=== PATIENT | female | born 1980 | race Caucasian/White ===

== ENCOUNTER → 2020-04-28 | Outpatient (CLI) | payer BC | LOC: COL.RAD 06:48 | DX: K80.20 Calculus of gallbladder without cholecystitis without obstruction (principal); R16.0 Hepatomegaly, not elsewhere classified ==

== ENCOUNTER 2021-06-03 14:49 | Inpatient (IN) | payer OTHER, BC ==
[~2021-06-03] VITALS: Ht 172.7 cm; Wt 175.0 kg
[2021-06-03] MEDS ORDERED: ZYRTEC 10MG10 MG PO (15:27)
[2021-06-03] MEDS ORDERED: RT SPIRIVA18 MCG (15:30)
[2021-06-03] MEDS ORDERED: LOVENOX 6060 MG/0.6 SQ (15:31)
[2021-06-03] MEDS ORDERED: ASPIRIN E.C. 8181 MG PO (15:32)
[2021-06-03] MEDS ORDERED: PERCOCET 325 MG1 TA2 PO (15:32)
[2021-06-03] MEDS ORDERED: TYLENOL 325MG325 MG PO (15:33)
[2021-06-03] MEDS ORDERED: PRISTIQ 50 MG T50 MG PO (15:34)
[2021-06-03] MEDS ORDERED: DULERA1 AR1 IH (17:02)
[2021-06-03] MEDS ORDERED: EUTHYROX125 MCG PO (17:04)
[2021-06-03] MEDS ORDERED: ACTIGALL 300MG300 MG PO (17:05)
[2021-06-03] MEDS ORDERED: SINGULAIR 110 MG/TAB PO (17:06)
[2021-06-03 17:43] VITALS: BP 140/74; PULSE 88; TEMP 98.8
--- NOTE | 2021-06-03 20:30 | NUR ---
PIVOT TRANSFER TO BSC 2:1 ASSIST. PT VOIDED W/O DIFFICULTY. TRANSFERRED TO BARIACTRIC BED. RTLOWER LEG UP ON PILLOWS AND ICE BAG APPLIED. RUE ON PILLOWS. CALL LIGHT IN REACH.
--- NOTE | 2021-06-03 23:31 | NUR ---
SEE MAR FOR PERCOCET GIVEN FOR ARM AND LEG PAIN LEVEL 6/10CPAP ON AT THIS TIME.
[2021-06-04 03:27] VITALS: BP 97/44; PULSE 97; TEMP 100.9
[2021-06-04 05:12] VITALS: BP 146/84; PULSE 92; TEMP 98.6
--- NOTE | 2021-06-04 14:26 | NUR ---
XRAY IN ROOM WITH PT. PT HAS WORKED WITH THERAPY MOST OF DAY, PIVOT TRANSFERS ET PUSHES SELF IN WC.
[2021-06-04 14:48] LABS: BASO % 0.3 % (0.0-2.0); EOS # 0.3 K/mm3 (0.0-0.7); EOS % 2.9 % (0.0-4.0); GRAN # 6.3 K/mm3 (1.4-6.5); HEMOGLOBIN 10.4 g/dl (12.5-16.0); LYMPH # 1.6 K/mm3 (1.2-3.4); MEAN CELL VOLUME 86 fl (80.0-100.0); MEAN CORPUSCULAR HEMOGLOBIN 27 pg (27-31); MEAN CORPUSCULAR HGB CONC 31 g/dl (33.0-37.0); MEAN PLATELET VOLUME 9.2 fl (7.4-10.4); MONO # 0.6 K/mm3 (0.1-0.6); MONO % 7.3 % (1.7-9.3); PLATELET COUNT 327 K/mm3 (130-400); RED BLOOD COUNT 3.86 M/mm3 (4.10-5.30); REDCELL DISTRIBUTION WIDTH-CV 13.9 % (11.5-14.5)
[2021-06-04 14:53] LABS: HEMATOCRIT 33.3 % (37.0-47.0)
[2021-06-04 15:01] LABS: CALCIUM 8.8 mg/dL (8.4-10.2); CREATININE, serum 0.75 mg/dL (0.57-1.11); POTASSIUM 3.9 mmol/L (3.5-4.5)
--- NOTE | 2021-06-04 15:01 | NUR ---
SW met with the patient to complete intake, as the patient is new to [facility]. The patient lives in an apartment in [place] with her spouse, Lori Paul (ph#[phone]). She reports independence with ADLs and does not have any DME. The patient's PCP is Dr. Ester Toribio and she receives her medications from [facility]. The patient does not have a DPOA-HC, but she was interested in obtaining a form. BHAVANA provided. The patient states that she is to [place]. The patient states that she plans on staying at an extended stay hotel upon discharge, due to the stairs at her apartment not being regulated, with no railings. She states that her mother, who was an RN, will also be coming from [place] to help her upon discharge. SW to continue to follow.
--- NOTE | 2021-06-04 15:20 | NUR ---
REPORT GIVEN TO TC BAEZA.
[2021-06-04 16:17] LABS: COLLECTION METHOD CLEAN CATCH
[2021-06-04 16:19] VITALS: BP 129/72; PULSE 92; TEMP 98
[2021-06-04 16:28] LABS: PH 6 (5-8); SQUAMOUS EPITHELIAL 0-2 /hpf (0-10); URINE APPEARANCE Clear (CLEAR/HAZY); URINE BACTERIA None Seen /hpf (NONE SEEN); URINE BILIRUBIN Negative (NEGATIVE); URINE BLOOD 1+ (NEGATIVE); URINE COLOR Straw (YELLOW); URINE GLUCOSE Negative (NEGATIVE); URINE KETONE Negative (NEGATIVE); URINE LEUKOCYTE ESTERASE Negative (NEGATIVE); URINE NITRATE Negative (NEGATIVE); URINE PROTEIN(semi-quant) Negative (NEGATIVE); URINE RBC 0-2 /hpf (0-2); URINE UROBILINOGEN Negative (NEGATIVE)
[2021-06-05 05:46] VITALS: BP 127/64; PULSE 81; TEMP 98.6
--- NOTE | 2021-06-05 17:09 | NUR ---
PT RESTING IN BED @ THIS TIME, HAS BEEN UP TO BR WITH 1 ASSIST ET USES WC TO PIVOT TRANSFER TO TOILET. PT'S PARTNER IS @ BEDSIDE. PT WORKED WITH THERAPY THIS MORNING, HAS BEEN GIVEN PERCOCET FOR PAIN.
[2021-06-05 17:46] VITALS: BP 130/68; PULSE 90; TEMP 97.6
--- NOTE | 2021-06-06 03:21 | NUR ---
Patient care, medication administration and nursing documentation occurred during a Daylight Savings Time Change.
[2021-06-06 06:04] VITALS: BP 126/63; PULSE 89; TEMP 98.7
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
[2021-06-06 18:00] VITALS: BP 126/63; PULSE 79; TEMP 98.6
--- NOTE | 2021-06-06 19:10 | NUR ---
RECEIVED CHANGE OF SHIFT REPORT FROM DAY SHIFT RN.
--- NOTE | 2021-06-06 21:35 | NUR ---
PATIENT REPORTED HAVING PROBLEMS WITH SLEEPING AT NIGHT, REPORTS TAKES MELATONIN FOR SLEEP AT HOME. CALLED DR WYMAN REGARDING PATIENT'S REQUEST FOR MELATONIN, PROVIDER TO ENTER ORDER FOR REQUESTED MED.
[2021-06-07 05:18] VITALS: BP 120/62; PULSE 92; TEMP 98.2
--- NOTE | 2021-06-07 06:51 | NUR ---
CHANGE OF SHIFT REPORT GIVEN TO DAY SHIFT RNTC.
--- NOTE | 2021-06-07 14:27 | NUR ---
BHAVANA met with the patient to follow up after the weekend. The patient states that she believes it went well. She states these last few days have been a blur, otherwise she believes she is doing well. The team would like to set up a patient/family meeting. A patient/family meeting was set up for this Monday at 1000. The patient states that her should be able be able to be here and she plans on FaceTiming her mother for the meeting.
[2021-06-07 16:19] VITALS: BP 135/74; PULSE 88; TEMP 98.4
--- NOTE | 2021-06-07 19:00 | NUR ---
RECEIVED CHANGE OF SHIFT REPORT FROM DAY SHIFT RN.
[2021-06-08 05:02] VITALS: BP 133/77; PULSE 79; TEMP 97.8
--- NOTE | 2021-06-08 07:10 | NUR ---
CHANGE OF SHIFT REPORT GIVEN TO DAY SHIFT RNs, ZENA.
--- NOTE | 2021-06-08 07:17 | NUR ---
Shift report recevied from mine shifter RN
--- NOTE | 2021-06-08 13:12 | NUR ---
Admission QIM scores were reviewed by the team. Code of 3 chosen for toilet hygiene was determined by team discussion to be the most usual performance for this patient during the assessment period. Code of 88 chosen for toileting transfers was determined by team discussion to be the most usual performance for this patient during the assessment period. Code of 6 chosen for lying to sitting on side of bed was determined by team discussion to be the most usual performance for this patient during the assessment period.--Paz Morrell, PD
--- NOTE | 2021-06-08 14:01 | NUR ---
Pt. has a healing laceration to her lateral left thigh. Pt. reports that this area rubs against the toilet paper branch when she toilets. Clean gauze and tegaderm applied for protection/comfort. Laceration has green/yellow bruising surrounding. Lac is well approximated and has no redness or drainage
[2021-06-08 15:41] VITALS: BP 125/67; PULSE 88; TEMP 98.4
--- NOTE | 2021-06-08 19:00 | NUR ---
RECEIVED CHANGE OF SHIFT REPORT FROM DAY SHIFT RN. CALL LIGHT WITHIN REACH. LIFE PARTNER PRESENT DURING REPORT, PATIENT WITH NO REPORTED NEEDS OR COMPLAINTS.
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
[2021-06-09 05:33] VITALS: BP 119/57; PULSE 82; TEMP 98.5
--- NOTE | 2021-06-09 06:52 | NUR ---
Patient is awake and alert in bed. Pt denied pain at this time. Call light and bedside table are within reach. Will continue to monitor pt throughout shift.
--- NOTE | 2021-06-09 07:05 | NUR ---
CHANGE OF SHIFT REPORT GIVEN TO DAY SHIFT RNs, PANKAJ.
--- NOTE | 2021-06-09 10:41 | NUR ---
BHAVANA attended the patient/family meeting. The patient's , Lori, at bedside. The patient's mother and another family member were present, via FaceTime. IPR Director, Dr. Azul, PT, and OT were also present. IPR Director started by explaining the purpose of the meeting. Dr. Azul then provided the patient and her family with a clinical update. PT/OT then discussed the patient's progress so far. IPR Director informed the patient and her family how the team has set a discharge date for this Monday with home exercise programs. They recommend a wheelchair with removeable elevating leg rests and a platform walker. The patient and her family are in agreement to the plan. Lori states that they have already ordered the platform walker and will just need help getting the wheelchair. They are agreeable with ordering the wheelchair through [facility]. Lori plans to book the handicap accessible hotel today for them to stay upon discharge. The team answered all questions. BHAVANA contacted and faxed and emailed the wheelchair and elevating leg rest order to Domenico at [facility].
--- NOTE | 2021-06-09 14:33 | NUR ---
BHAVANA met with the patient and her , Lori, and presented and reviewed the IPR Team Conference Note with them. The patient and Lori had no concerns for SW at this time.
[2021-06-09 17:23] VITALS: BP 110/57; PULSE 90; TEMP 98.2
--- NOTE | 2021-06-09 19:00 | NUR ---
RECEIVED CHANGE OF SHIFT REPORT FROM DAY SHIFT RN. LIFE PARTNER AT BEDSIDE. CALL LIGHT WITHIN REACH. PATIENT REPORTS CONCERNS REGARDING REDNESS TO UPPER L RANKIN THAT HAS INCREASED TENDERNESS WITH TOUCH, REPORTS THERE IS MORE REDNESS AND "IT'S HOT TO TOUCH".
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
--- NOTE | 2021-06-09 21:00 | NUR ---
ATTEMPTED TO CONTACT HOSPITALIST REGARDING REDNESS/HEAT COMPLAINTS TO UPPER L RANKIN AREA, PROVIDER NOT AVAILABLE TO STATED THEY WOULD CALL THIS NURSE BACK WHEN ABLE. WAITING STATUE CARVER BACK.
--- NOTE | 2021-06-09 22:12 | NUR ---
HOSPITALIST CALLED, INFORMED OF PATIENT'S COMPLAINT OF REDNESS/HOT TO TOUCH TO UPPER L RANKIN. PROVIDER TO SEE PATIENT AND PATIENT INFORMED
--- NOTE | 2021-06-09 22:35 | NUR ---
MRSA NARES SWAB OBTAINED AND SENT TO LAB PER D.O.
[2021-06-09 23:18] LABS: BASO % 0.4 % (0.0-2.0); EOS # 0.2 K/mm3 (0.0-0.7); EOS % 2.1 % (0.0-4.0); GRAN # 6.8 K/mm3 (1.4-6.5); GRAN % 69.2 % (42.2-75.2); LYMPH # 2.1 K/mm3 (1.2-3.4); LYMPH % 21.1 % (20.0-51.0); MEAN CELL VOLUME 85 fl (80.0-100.0); MEAN CORPUSCULAR HGB CONC 31 g/dl (33.0-37.0); MEAN PLATELET VOLUME 9.6 fl (7.4-10.4); MONO # 0.7 K/mm3 (0.1-0.6); MONO % 6.6 % (1.7-9.3); PLATELET COUNT 322 K/mm3 (130-400); RED BLOOD COUNT 3.72 M/mm3 (4.10-5.30); REDCELL DISTRIBUTION WIDTH-CV 14.2 % (11.5-14.5)
[2021-06-09 23:19] LABS: HEMOGLOBIN 9.8 g/dl (12.5-16.0); MEAN CORPUSCULAR HEMOGLOBIN 26 pg (27-31)
[2021-06-09 23:20] LABS: HEMATOCRIT 31.6 % (37.0-47.0)
[2021-06-09 23:31] LABS: CALCIUM 8.7 mg/dL (8.4-10.2); CREATININE, serum 0.8 mg/dL (0.57-1.11); POTASSIUM 3.8 mmol/L (3.5-4.5)
--- NOTE | 2021-06-10 01:15 | NUR ---
CONTACTED HOSPITALIST TO INFORMED OF LABS RESULTS AVAILABLE, VANCOMYCIN TO FINISH OUT INFUSION
[2021-06-10 06:13] VITALS: BP 124/64; PULSE 85; TEMP 98
--- NOTE | 2021-06-10 07:15 | NUR ---
CHANGE OF SHIFT REPORT GIVEN TO DAY SHIFT RNBETTE.
--- NOTE | 2021-06-10 08:43 | NUR ---
BHAVANA contacted Kassandra at [facility] to follow up about the wheelchair. Kassandra states that they did receive the order and are going to try and deliver the wheelchair to the patient's room today.
--- NOTE | 2021-06-10 11:49 | NUR ---
CHRISTOPHER delivered the patient's wheelchair to her room.
[2021-06-10] MEDS ORDERED: DOXYCYCLINE 10100 MG PO (12:19)
[2021-06-10] MEDS ORDERED: AMOXICILLIN 8751 TAB PO (12:19)
[2021-06-10] MEDS ORDERED: PROBIOTIC ACID1 EAC3 PO (12:20)
[2021-06-10 17:04] VITALS: BP 123/58; PULSE 87; TEMP 98.2
--- NOTE | 2021-06-10 17:48 | NUR ---
PATIENT IN STABLE CONDITION. COMPLAINED OF PAIN TO RIGHT LOWER EXT THIS SHIFT, GIVEN PRN PAIN MEDS. LEFT LOWER EXT CELLULITIS IMPROVING WITH ANTIBIOTICS. PLAN TO DC HOME WITH ORAL MEDS TOMORROW. ABLE TO AMBULATE WELL WITH ASSIST DEVICES. CONTINENT. GOOD APPETITE. TAKES MEDS WHOLE.
--- NOTE | 2021-06-10 20:00 | NUR ---
Bedside shift report received, assumed care for night baker. Assessment complete. A&Ox3. Rating pain 6/10 to BLE/BUE but states wants to wait for pain meds until closer to bedtime. Noted to have redness/warmth and swelling to LLE. States it appears to be less than last NOC. Cam boot to RLE-good CMS. Dressing to RUE CDI-herbert/kerlix/bulky white. Good CMS. Plan of care discussed for this shift to include meds/pain control/calling for questions/concerns. Verbalizes understanding. Call light in reach. Will monitor.
--- NOTE | 2021-06-11 02:08 | NUR ---
Resting eyes closed. No s/s of pain noted. Will monitor.
--- NOTE | 2021-06-11 04:56 | NUR ---
Patient had an uneventful night. Received percocet x2 for pain. No nausea/shortness of breath. Dressings to RLE/RUE remained CDI. VS stable. Denies current needs. Call light in reach. Will monitor.
[2021-06-11 05:46] VITALS: BP 129/64; PULSE 78; TEMP 98.1
--- NOTE | 2021-06-11 07:23 | NUR ---
Patient is awake and resting in bed. Call light and bedside table are within reach. Will continue to monitor patient throughout shift.
--- NOTE | 2021-06-11 09:22 | NUR ---
BHAVANA met with the patient to review discharge for today. The patient's wheelchair was delivered yesterday. The patient had no questions for concerns for BHAVANA. She states that she has her hotel booked. The patient is to discharge to an extended stay hotel today, 06/11, with her and will do the home exercise program. No additional needs at this time.
[2021-06-11] MEDS ORDERED: ASPIRIN E.C. 8181 MG PO (09:39)
[2021-06-11] MEDS ORDERED: PROTONIX 40MG T40 MG PO (09:40)
[2021-06-11] MEDS ORDERED: PERCOCET 325 MG1 TA2 PO (09:41)
[2021-06-11] MEDS ORDERED: RT SPIRIVA18 MCG INH (12:13)
--- NOTE | 2021-06-11 12:45 | NUR ---
Discharge paperwork discussed and a reminder to make all follow-up appointments. Patient's partner packed all belongings to include cell phone and reinsurance claim analyst. Patient is aware she has medication she needs to pickling grader at her preferred pharmacy. Patient transported via wheel chair and she was belted in for her ride home.
== END 2021-06-11 12:45 | disposition home or self-care (01) | DRG 560 ==
PROVIDERS: Internal Medicine; Nurse Practitioner Family; ADMIT Physical Medicine & Rehabilitation Sports Medicine
DX: S82.851E Displaced trimalleolar fracture of right lower leg, subsequent encounter for open fracture type I or II with routine healing (principal); Z68.43 Body mass index [BMI] 50.0-59.9, adult; L03.116 Cellulitis of left lower limb; S82.401E Unspecified fracture of shaft of right fibula, subsequent encounter for open fracture type I or II with routine healing; V47.5XXD Car driver injured in collision with fixed or stationary object in traffic accident, subsequent encounter; Y92.410 Unspecified street and highway as the place of occurrence of the external cause; K21.9 Gastro-esophageal reflux disease without esophagitis; G47.33 Obstructive sleep apnea (adult) (pediatric); R26.89 Other abnormalities of gait and mobility; K59.00 Constipation, unspecified; J45.909 Unspecified asthma, uncomplicated; F41.9 Anxiety disorder, unspecified; E03.9 Hypothyroidism, unspecified; E66.01 Morbid (severe) obesity due to excess calories; Z79.51 Long term (current) use of inhaled steroids; Z79.82 Long term (current) use of aspirin; Z73.6 Limitation of activities due to disability; S62.300D Unspecified fracture of second metacarpal bone, right hand, subsequent encounter for fracture with routine healing; Z79.891 Long term (current) use of opiate analgesic; Z79.899 Other long term (current) drug therapy; Z91.018 Allergy to other foods; Z79.01 Long term (current) use of anticoagulants; F12.20 Cannabis dependence, uncomplicated; Z87.891 Personal history of nicotine dependence
CPT/HCPCS: 99223; 99231-AI; 99232-AI; 99233-AI; A9284; J1650; J2405; J2543; J3370; J7040; L4386

== ENCOUNTER 2021-09-22 11:15 | Outpatient (RCR) | payer BC ==
[~2021-09-22 11:15] MED LIST: ACTIGALL 300MG300 MG PO; AMOXICILLIN 8751 TAB PO; ASPIRIN E.C. 8181 MG PO; DOXYCYCLINE 10100 MG PO; DULERA1 AR1 IH; EUTHYROX125 MCG PO; LOVENOX 6060 MG/0.6 SQ; PERCOCET 325 MG1 TA2 PO; PRISTIQ 50 MG T50 MG PO; PROBIOTIC ACID1 EAC3 PO; PROTONIX 40MG T40 MG PO; RT SPIRIVA18 MCG; RT SPIRIVA18 MCG INH; SINGULAIR 110 MG/TAB PO; TYLENOL 325MG325 MG PO; ZYRTEC 10MG10 MG PO
== END 2021-09-23 | disposition still patient (30) ==
LOC: WSPT
DX: S91.001D Unspecified open wound, right ankle, subsequent encounter (principal); X58.XXXD Exposure to other specified factors, subsequent encounter

== ENCOUNTER 2021-10-19 14:15 | Outpatient (RCR) | payer BC | END 2021-10-24 | disposition home or self-care (01) | LOC: WSPT | DX: S91.001D Unspecified open wound, right ankle, subsequent encounter (principal); X58.XXXD Exposure to other specified factors, subsequent encounter ==

== ENCOUNTER 2021-11-23 13:30 | Outpatient (RCR) | payer BC | END 2021-11-24 | disposition still patient (30) | LOC: WSPT | DX: S91.001D Unspecified open wound, right ankle, subsequent encounter (principal); X58.XXXD Exposure to other specified factors, subsequent encounter ==

== ENCOUNTER 2022-01-13 10:30 | Outpatient (RCR) | payer BC | END 2022-01-24 | disposition home or self-care (01) | LOC: WSPT | DX: S62.330D Displaced fracture of neck of second metacarpal bone, right hand, subsequent encounter for fracture with routine healing (principal); X58.XXXD Exposure to other specified factors, subsequent encounter ==

== ENCOUNTER 2022-03-22 10:30 | Outpatient (RCR) | payer BC | END 2022-03-26 | disposition home or self-care (01) | LOC: WSC | DX: S91.001D Unspecified open wound, right ankle, subsequent encounter (principal); M25.551 Pain in right hip ==

== ENCOUNTER 2022-04-18 14:44 | Outpatient (RCR) | payer BC | END 2022-04-18 14:45 | disposition home or self-care (01) | LOC: CANPRERCR → WSPT 14:44 | DX: M25.551 Pain in right hip (principal) ==

== ENCOUNTER 2022-04-22 11:15 | Outpatient (RCR) | payer BC | END 2022-04-26 | disposition home or self-care (01) | LOC: WSPT | DX: M25.551 Pain in right hip (principal) ==

== ENCOUNTER 2023-04-25 12:54 | Outpatient (RCR) | payer BC | END 2023-04-26 | disposition home or self-care (01) | LOC: WSPT | DX: M25.551 Pain in right hip (principal); Z98.890 Other specified postprocedural states ==

== ENCOUNTER → 2023-05-25 | Outpatient (RCR) | payer BC | END | disposition home or self-care (01) | LOC: WSPT | DX: M25.551 Pain in right hip (principal); Z98.890 Other specified postprocedural states ==

== ENCOUNTER 2023-06-15 11:15 | Outpatient (RCR) | payer BC | END 2023-06-25 | disposition home or self-care (01) | LOC: WSPT | DX: M25.551 Pain in right hip (principal); M25.571 Pain in right ankle and joints of right foot; Z98.890 Other specified postprocedural states ==